=== PATIENT | female | born 1965 | race Caucasian/White ===

== ENCOUNTER 2018-02-26 14:23 | Outpatient (CLI) | payer BC ==
[2018-02-26 15:08] LABS: #Eosinphils 0.4 thou/uL (0.0-0.7); #Lymphocytes 2.2 thou/uL (1.20-3.40); #Monocytes 0.4 thou/uL (0.11-0.59); #Neutrophils 4.1 thou/uL (1.40-6.50); %Basophils 0.6 % (0.0-1.0); %Eosinophils 5.1 % (0.0-10.0); %Lymphocytes 31.3 % (21.0-51.0); %Monocytes 5.2 % (0.0-10.0); %Neutrophils 57.9 % (42.0-75.0); Hemoglobin 14.1 g/dL (12.0-16.0); Mean Corpuscular HGB CONC 33.9 g/dL (32.0-36.0); Mean Corpuscular Hemoglobin 27.6 pg (27.0-31.0); Mean Corpuscular Volume 81.3 fl (81.0-99.0); Mean Platelet Volume 7.7 fL (7.4-10.4); Platelet Count 261 thou/uL (130-400); RBC Distribution Width 12.9 % (11.5-14.5); Red Blood Cell (RBC) Count 5.09 mill/uL (4.20-5.40)
[2018-02-26 15:14] LABS: Hemoglobin A1c 5.7 % (4.0-6.0)
[2018-02-26 15:33] LABS: ALT (SGPT) 31 U/L (8-55); AST (SGOT) 24 U/L (5-34); Albumin 4.6 g/dL (3.5-5.0); Alkaline Phosphatase 67 U/L (40-150); Anion Gap 12 mmol/L (10-20); BUN (Urea Nitrogen) 14 mg/dL (9.8-20.1); Bilirubin, Total 0.4 mg/dL (0.2-1.2); Calc. Creatinine Clearance 0 mL/min (70-130); Calcium 9.8 mg/dL (7.8-10.44); Carbon Dioxide 26 mmol/L (22-29); Chloride 105 mmol/L (98-107); Estimated GFR-MDRD 61; Globulin 3.1 g/dL (2.4-3.5); Glucose 126 mg/dL (70-105); Potassium 3.5 mmol/L (3.5-5.1); Protein, Total 7.7 g/dL (6.0-8.3); Sodium 139 mmol/L (136-145)
== END 2018-02-26 14:24 | disposition home or self-care (01) ==
LOC: LABBT 14:23
PROVIDERS: ATTEND Surgery
DX: Z01.818 Encounter for other preprocedural examination (principal); C19 Malignant neoplasm of rectosigmoid junction
CPT/HCPCS: 80053; 83036; 85025; 93005; 93010

== ENCOUNTER 2018-02-26 17:15 | Inpatient (IN) | payer BC, OTHER ==
[2018-02-26 14:36] VITALS: BMI 39.2
[2018-03-01] MEDS ORDERED: cefOXitin 2 GM VIAL ONE (06:23)
[2018-03-01] MEDS ORDERED: Sodium Chloride 0.9% 100 ML ONE (06:23)
[2018-03-01] MEDS ORDERED: Bupivacaine/Epinephrine 0.25% 30 ML VIAL ONE (06:30)
[2018-03-01] MEDS ORDERED: Scopolamine 1.5 mg/72 hour Patch ONE (07:14)
[2018-03-01] MEDS ORDERED: Famotidine/PF 20 mg/2ml Vial ONE (07:14)
[2018-03-01] MEDS ORDERED: HYDROmorphone 0.5 MG/0.5 ML SYRINGE ONE (07:19)
[2018-03-01] MEDS ORDERED: Fentanyl 250 MCG/5 ML VIAL ONE (07:19)
[2018-03-01] MEDS ORDERED: Promethazine HCl 25 MG/ML VIAL IM PRN ×3 (09:37→10:44)
[2018-03-01] MEDS ORDERED: Meperidine HCl/PF 25 MG/ML VIAL SLOW IVP PRN (09:37)
[2018-03-01] MEDS ORDERED: Promethazine HCl 25 MG/ML VIAL SLOW IVP PRN (09:37)
[2018-03-01] MEDS ORDERED: HYDROmorphone 2 MG/ML VIAL SLOW IVP PRN (09:37)
[2018-03-01] MEDS ORDERED: Morphine Sulfate 2 MG/ML SYRINGE SLOW IVP PRN (09:37)
[2018-03-01] MEDS ORDERED: Ondansetron HCl/PF 4 MG/2 ML Vial IVP PRN ×3 (09:37→10:44)
[2018-03-01] MEDS ORDERED: hydrALAZINE 20 MG/ML VIAL SLOW IVP PRN (10:08)
[2018-03-01] MEDS ORDERED: Naloxone HCl 0.4 mg/ml Vial IV PRN (10:44)
[2018-03-01] MEDS ORDERED: Zolpidem Tartrate 5 MG TAB PO PRN (10:44)
[2018-03-01] MEDS ORDERED: diphenhydrAMINE 25 MG CAP PO PRN (10:44)
[2018-03-01] MEDS ORDERED: diphenhydrAMINE 50 MG/ML VIAL IM/IV PRN (10:44)
[2018-03-01] MEDS ORDERED: Morphine CADD 1 MG/ML CADD IV PRN (10:44)
--- NOTE | 2018-03-01 10:53 | OP ---
PREOPERATIVE DIAGNOSIS: Malignant polyp near rectosigmoid with closed margin. SURGEON: Charly Urrutia M.D. PROCEDURE PERFORMED: Laparoscopic low anterior resection. INDICATIONS: This is a 52-year-old female who had a polypectomy done a couple of weeks ago that they found a sessile polyp at the rectosigmoid. The tumor went right to the margin. Finally, it was mar ked with a tattoo. FINDINGS: The tattoo was right at the peritoneal reflection. PROCEDURE IN DETAIL: After informed consent was obtained, patient was taken to the operating room an d given general endotracheal anesthesia, placed in the supine lithotomy position. Her perianal area was first prepped and then her abdomen was prepped and draped in usual fashion. Local anesthesia inf iltrated subcutaneously and deep. A 5-mm incision was performed in right lateral abdomen. A Veress needle inserted. Drop test performed. Pneumoperitoneum was created to a volume of 2 liters of carbo n dioxide. Utilizing a bladeless 5 mm trocar and 0-degree laparoscope, direct visual entry in the ab dominal cavity was performed. Pneumoperitoneum was created to a pressure of 15 mmHg. Then under dir ect vision, two 5-mm ports were placed again on the right side; one at right lower quadrant and one a t right upper quadrant. The patient then placed in steep Trendelenburg position with the left side. She is morbidly obese and was looking for the tattoo. I inspected the sigmoid colon, went down into the pelvis as far as I could. I just could not see any evidence of a tattoo. So, added a hand-assi sted port in the left lower quadrant and was able to get everything out of the way, added some laparo geoffrey pads to pack off the bowel and was able to look down into the deep true pelvis and there was the tattoo. So, the peritoneum was scored initially with electrocautery and then further extended utili zing the LigaSure circumferentially and was able to dissect out the tattooed portion of the rectum. Then divided the mesentery with the LigaSure and the superior rectal vessels were individually ligate d with Hemoclips and divided. Then using linear 60 mm green load stapler as it was fairly thick, the rectum was divided in 2 passes. Then the mesentery further divided with the LigaSure and then the s pecimen was brought out through the hand-assisted port. A Pio clamp was then placed across the si gmoid colon and divided below it and placed on the back table. Then the proximal colon was opened wi th Allis clamps and a 29 EEA anvil was inserted and brought out through the antimesenteric taenia. T hen we went below first with dilators and then with the EEA advanced transrectally and brought out th rough the staple line. Prior to inserting the anvil, the distal end of the colon was closed with the contour thick stapler. Then the anvil was inserted intra-abdominally. Pneumoperitoneum reestablish ed and we spiked out through the staple line, connected the anvil using the hand-assisted port and cl osed the stapler. Then, fired it by, we held it for 30 seconds, then released for 30 seconds and ope kylee it and removed. The donuts were inspected. They were complete. Hemostasis was assured. The an astomosis was checked by compressing the descending colon and inflating the colon with air using a pr octoscope transanally. There was no evidence of air leak. Then, I went back to the back table, open ed the specimen and it appeared as though we had got at least 2 cm of distal margin from the area of resection. So that specimen was then sent to pathology for further analysis. We changed gowns and g loves and then reinspected again, hemostasis assured. Irrigation fluid removed. Trocars and retract ors removed. The posterior fascia was closed with a running #1 PDS and then the anterior fascia clos ed with a running #1 PDS. Subcutaneous was thoroughly irrigated with pulse measurer machine. Subcutaneous reapproximated with interrupted 3-0 Vicryl. The skin closed with running subcuticular 4-0 Rapide and then the other trocar sites were closed with interrupted 4-0 Rapide. Dermabond applied. The patien t tolerated the procedure well and was transferred to recovery in good condition. Sponge and needle count verified correct x2.
[2018-03-01] MEDS: Sodium Chloride 0.9% 1,000 ML IV SCH ×2 (11:49→20:48)
[2018-03-01] MEDS: Ketorolac Tromethamine 30 MG/ML VIAL IVP SCH ×3 (11:52→23:30)
[2018-03-01] MEDS: Acetaminophen 1,000 MG in Premix Bag 1 BAG IVPB SCH ×3 (11:52→23:30)
[2018-03-01] MEDS ORDERED: Ondansetron HCl/PF 4 MG/2 ML Vial ONE (13:48)
[2018-03-01] MEDS ORDERED: PROPOFOL 200 MG/20 ML VIAL ONE (13:48)
[2018-03-01] MEDS ORDERED: Glycopyrrolate 0.2 MG/ML 5 ML SYRINGE ONE (13:48)
[2018-03-01] MEDS ORDERED: Dexamethasone 20 MG/5 ML VIAL ONE (13:48)
[2018-03-01] MEDS ORDERED: Ketorolac Tromethamine 30 MG/ML VIAL ONE (13:48)
[2018-03-01] MEDS ORDERED: Lidocaine 1% PF 5 ML VIAL ONE (13:48)
[2018-03-01] MEDS ORDERED: PHENYLEPHRINE-NS 100 MCG/ML 10 ML SYRINGE ONE (13:48)
[2018-03-01] MEDS: cefOXitin 2 GM in Sodium Chloride 0.9% 100 ML IVPB SCH ×2 (15:14→21:45)
[2018-03-01] MEDS: Famotidine/PF 20 mg/2ml Vial SLOW IVP SCH (20:46)
[2018-03-01] MEDS: Famotidine 20 MG TAB PO SCH (21:44)
[2018-03-02 04:04] LABS: #Lymphocytes 1.4 thou/uL (1.20-3.40); #Monocytes 0.7 thou/uL (0.11-0.59); #Neutrophils 9.5 thou/uL (1.40-6.50); %Basophils 0.1 % (0.0-1.0); %Eosinophils 0.1 % (0.0-10.0); %Lymphocytes 12.2 % (21.0-51.0); %Monocytes 5.8 % (0.0-10.0); %Neutrophils 81.8 % (42.0-75.0); Hemoglobin 12.5 g/dL (12.0-16.0); Mean Corpuscular HGB CONC 33.4 g/dL (32.0-36.0); Mean Corpuscular Hemoglobin 27.5 pg (27.0-31.0); Mean Corpuscular Volume 82.5 fl (81.0-99.0); Mean Platelet Volume 7.8 fL (7.4-10.4); Platelet Count 227 thou/uL (130-400); RBC Distribution Width 13.1 % (11.5-14.5); Red Blood Cell (RBC) Count 4.56 mill/uL (4.20-5.40); White Blood Cell (WBC) Count 11.5 thou/uL (4.8-10.8)
[2018-03-02 04:27] LABS: Anion Gap 8 mmol/L (10-20); BUN (Urea Nitrogen) 11 mg/dL (9.8-20.1); Calc. Creatinine Clearance 140 mL/min (70-130); Calcium 8.5 mg/dL (7.8-10.44); Carbon Dioxide 27 mmol/L (22-29); Chloride 107 mmol/L (98-107); Estimated GFR-MDRD 70; Glucose 112 mg/dL (70-105); Potassium 3.9 mmol/L (3.5-5.1); Sodium 138 mmol/L (136-145)
[2018-03-02] MEDS: Ketorolac Tromethamine 30 MG/ML VIAL IVP SCH ×4 (05:38→23:43)
[2018-03-02] MEDS: Acetaminophen 1,000 MG in Premix Bag 1 BAG IVPB SCH (05:38)
[2018-03-02] MEDS: Sodium Chloride 0.9% 1,000 ML IV SCH ×4 (05:40→23:44)
[2018-03-02] MEDS: Famotidine 20 MG TAB PO SCH ×2 (08:40→20:18)
[2018-03-02] MEDS: Famotidine/PF 20 mg/2ml Vial SLOW IVP SCH ×2 (08:40→20:35)
[2018-03-02] MEDS: Enoxaparin Sodium 40 MG/0.4 ML SYRINGE SC SCH (10:10)
[2018-03-03] MEDS: Ketorolac Tromethamine 30 MG/ML VIAL IVP SCH ×3 (05:33→12:07)
[2018-03-03] MEDS ORDERED: DC PCA Order Set 1 EACH FS ONE (07:46)
[2018-03-03] MEDS ORDERED: HYDROcodone/Acetaminophen 10/325 mg Tablet PO PRN ×2 (07:47)
[2018-03-03] MEDS: Famotidine 20 MG TAB PO SCH (08:48)
--- NOTE | 2018-03-03 11:11 | DIS ---
DISCHARGE DIAGNOSIS: Distal rectal cancer. SURGEON: Dr. Charly Urrutia PROCEDURE PERFORMED: Laparoscopic low anterior resection. HOSPITAL COURSE: The patient was admitted, taken to the operating room where she underwent a distal rectosigmoid resection for a malignant polyp. Postoperatively, she has done well. Her bowel functio n has returned. Her pain is well controlled on p.o. medication. She is discharged home in good cond ition, tolerating a liquid diet. She will follow up with me in 2 weeks.
[2018-03-03] MEDS: Enoxaparin Sodium 40 MG/0.4 ML SYRINGE SC SCH (12:06)
[2018-03-03] MEDS: Sodium Chloride 0.9% 1,000 ML IV SCH (14:08)
[2018-03-03] MEDS: Famotidine/PF 20 mg/2ml Vial SLOW IVP SCH (14:09)
[2018-03-03 16:00] VITALS: BP 149/72; TEMP 98.2
== END 2018-03-03 16:14 | disposition home or self-care (01) | DRG 333 ==
LOC: SURG A 03-01 06:07
PROVIDERS: ADMIT Surgery; ATTEND Surgery
PROC: 0DBP4ZZ Excision of Rectum, Percutaneous Endoscopic Approach (ICD-10-PCS; principal; 2018-03-01)
DX: C18.9 Malignant neoplasm of colon, unspecified (principal); C19 Malignant neoplasm of rectosigmoid junction; E66.01 Morbid (severe) obesity due to excess calories; Z68.39 Body mass index [BMI] 39.0-39.9, adult
CPT/HCPCS: 36415; 36416; 80048; 85025; 88305; 88307; J0131; J0694; J1100; J1170; J1650; J1885; J2001; J2274; J2405; J2704; J3010; J7050; S0028

== ENCOUNTER 2018-05-28 08:59 | Outpatient (CLI) | payer BC | END 2018-05-28 09:00 | disposition home or self-care (01) | LOC: BICMAMMO 08:59 | PROVIDERS: ATTEND Obstetrics & Gynecology | DX: Z12.31 Encounter for screening mammogram for malignant neoplasm of breast (principal); R92.1 Mammographic calcification found on diagnostic imaging of breast; Z85.038 Personal history of other malignant neoplasm of large intestine; Z80.3 Family history of malignant neoplasm of breast | CPT/HCPCS: 77063; 77067 ==

== ENCOUNTER 2019-03-03 01:26 | Outpatient (CLI) | payer BC ==
[2019-03-03 12:49] LABS: Anion Gap 13 mmol/L (10-20); BUN (Urea Nitrogen) 13 mg/dL (9.8-20.1); Calc. Creatinine Clearance 0 mL/min (70-130); Calcium 9.6 mg/dL (7.8-10.44); Carbon Dioxide 28 mmol/L (22-29); Chloride 101 mmol/L (98-107); Estimated GFR-MDRD 60; Glucose 101 mg/dL (70-105); Potassium 3.8 mmol/L (3.5-5.1); Sodium 138 mmol/L (136-145)
== END 2019-03-03 01:27 | disposition home or self-care (01) ==
LOC: LABBT 01:26
PROVIDERS: ATTEND Obstetrics & Gynecology
DX: Z01.812 Encounter for preprocedural laboratory examination (principal); N95.0 Postmenopausal bleeding
CPT/HCPCS: 80048

== ENCOUNTER 2019-03-07 09:59 | Day surgery (SDC) | payer BC ==
[2019-03-03 11:28] VITALS: BMI 40.7
[2019-03-03 12:28] LABS: Mean Corpuscular HGB CONC 33.4 g/dL (32.0-36.0); Mean Corpuscular Hemoglobin 27.7 pg (27.0-31.0); Mean Corpuscular Volume 82.8 fL (78.0-98.0); Mean Platelet Volume 7.8 fL (7.4-10.4); Platelet Count 278 thou/uL (130-400); RBC Distribution Width 12.9 % (11.5-14.5); Red Blood Cell (RBC) Count 5.07 mill/uL (4.20-5.40); White Blood Cell (WBC) Count 6.8 thou/uL (4.8-10.8)
--- NOTE | 2019-03-03 18:02 | HP ---
She is set for Day Surgery on 03/07. HISTORY OF PRESENT ILLNESS: Ms. Rodriguez is a 53-year-old white female, G0, who has been menopausal for 2 years with reported onset of postmenopausal bleeding. She was evaluated in my office due to the new complaint and she was noted on transvaginal ultrasound to have a thickened endometrial lining of 11 mm. This was suggestive of an endometrial polyp. No other abnormalities were noted. She has had a previous normal Pap smear with HPV screening in 2018. PAST MEDICAL HISTORY: Significant for chronic hypertension. PAST SURGICAL HISTORY: She had a colon surgery on March 01, 2018. FAMILY HISTORY: Diabetes and hypertensive disorder. SOCIAL HISTORY: She is a nonsmoker. No excessive alcohol use. PHYSICAL EXAMINATION: VITAL SIGNS: Height is 5 feet 8 inches, weight 265 pounds, pulse 81, blood pressure 150/82, O2 sats on room air 96%. HEENT: Within normal limits. CHEST: Clear to auscultation. HEART: Regular rate and rhythm. S1 and S2 heart sounds. No murmurs, rubs, or gallops. ABDOMEN: Soft, nontender, nondistended. PELVIC: Well-healed incisional scar noted on pelvic exam. Vulva and vagina had no lesions. Cervix had no active bleeding, but there appeared to be a possible small polyp up in the endocervical canal. I tried to access this in my office, but the patient had a very difficult exam, was unable to relax even with a small speculum and therefore the vaginal exposure was very limited. Uterus was normal in size and shape and mobile. Adnexa were nontender with no masses. DIAGNOSTIC STUDIES: The transvaginal sonogram showed the uterus to measure 7.1 x 3.9 with endometrial thickness of 11.2. Bilateral ovaries were normal. ASSESSMENT: This is a 53-year-old white female, G0, with onset of postmenopausal bleeding with thickened endometrial lining of 11.2 mm on ultrasound. Unable to access on adequate exam due to limited vaginal exposure. Possible endocervical polyp noted. PLAN: Plan is to proceed with Day Surgery with a diagnostic hysteroscopy, D and C, and polypectomy as indicated. Risks and benefits of the procedure were discussed in detail and she is set for surgery on 03/07. Job ID: [id number]
[2019-03-07] MEDS ORDERED: Fentanyl 100 MCG/2 ML VIAL ONE (12:08)
--- NOTE | 2019-03-07 23:08 | OP ---
DATE OF PROCEDURE: 03/07/2019 PREOPERATIVE DIAGNOSES: A 53-year-old white female, G0 with postmenopausal bleeding and thickened endometrial lining on transvaginal ultrasound. POSTOPERATIVE DIAGNOSES: 1. A 53-year-old white female, G0 with postmenopausal bleeding and thickened endometrial lining on transvaginal ultrasound. 2. Presumed endometrial polyp. PROCEDURES PERFORMED: Diagnostic hysteroscopy with D and C and polypectomy. ANESTHESIA: General endotracheal. ESTIMATED BLOOD LOSS: Less than 10 mL. COMPLICATIONS: None. COUNTS: Correct x2. ANTIBIOTICS: 2 g Ancef on-call to OR. PATHOLOGY: Endometrial curettage with presumed polyp. FINDINGS: The patient had an atrophic vaginal vault and some limited mobility of the vaginal vault due to her nulliparity and menopausal status. Her cervix had no gross lesions seen. The endometrial cavity was distended and was visualized with a polypoid lesion noted at the posterior midportion of the lower uterine fundus. Otherwise, her atrophy of the lining was noted. There were no endocervical lesions noted on hysteroscopic exam. DESCRIPTION OF PROCEDURE: The patient previously received informed consent in regard to surgery. She was taken back to the operating room, where she received a general endotracheal anesthetic agent without complications. She was placed in dorsal lithotomy position with use of Idris stirrups and prepped and draped in usual sterile fashion. In and out catheterization of bladder was performed at this time. A Graves speculum was placed and the patient's vaginal tissue was noted to be atrophic with minimal elasticity making the visualization of the upper vaginal vault limited. This was taken down the bivalving and placed in the posterior vagina along with a [place] retractor. The cervix was then grasped with a single-toothed tenaculum. We were able to visualize the cervix better by placing a curved Liang in the posterior vagina and then placing the tenaculum on the posterior Liang enabled us to pull down the cervix, so we were able to sound then this to 8 cm and then dilate the cervix to a size 16 Matthews dilator. We then placed the 5 mm TruClear hysteroscope at 8 mm pressure and distended the uterine cavity with the previously mentioned findings. The polypoid lesion was then shaved under direct visualization with the tissue morcellator through the TruClear system. Then, sharp curettage remaining the of the uterine cavity was performed and sent for final pathology. The cervical site was noted to be hemostatic after the tenaculum was removed and the hysteroscope. The [place] blade was removed and we placed some 3-0 submucosal stitches of chromic suture to repair some small vaginal lacerations from the retraction. This was placed in the posterior introitus and just in the anterior 12 o'clock position of the introitus with hemostasis being achieved. The fluid deficit was noted to be 280 mL of normal saline and the patient was awakened from anesthesia and transferred to recovery room in stable condition and then she was discharged home from Day Stay. She has a followup in 4 weeks. Job ID: [id number]
== END 2019-03-07 15:50 | disposition home or self-care (01) ==
LOC: SDC 09:59
PROVIDERS: ATTEND Obstetrics & Gynecology
PROC: 0UBC8ZX Excision of Cervix, Via Natural or Artificial Opening Endoscopic, Diagnostic (ICD-10-PCS; principal; 2019-03-07)
PROC: 0UDB8ZX Extraction of Endometrium, Via Natural or Artificial Opening Endoscopic, Diagnostic (ICD-10-PCS; principal; 2019-03-07)
DX: N84.0 Polyp of corpus uteri (principal); N95.2 Postmenopausal atrophic vaginitis; I10 Essential (primary) hypertension; Z98.890 Other specified postprocedural states; Z79.899 Other long term (current) drug therapy
CPT/HCPCS: 85027; 86850; 86900; 86901; 88305; J0690; J3010